=== PATIENT | male | born 1940 | race Caucasian/White ===

== ENCOUNTER → 2024-04-09 10:33 | Outpatient (REF) | payer MEDICARE, BC, SELFPAY ==
[2024-04-09 12:14] LABS: PSA, Total - Diagnostic 3.51 ng/ml (0.0-4.0)
== END ==
LOC: REG 10:33
PROVIDERS: ATTENDING PHYSICIAN Specialist; FAMILY PHYSICIAN Internal Medicine Geriatric Medicine
DX: R35.0 Frequency of micturition (principal); R35.1 Nocturia; R36.1 Hematospermia
CPT/HCPCS: 36415; 84153

== ENCOUNTER → 2024-07-10 12:19 | Outpatient (REF) | payer MEDICARE, BC, SELFPAY ==
[2024-07-10 14:01] LABS: Prealbumin (Transthyretin) 28.6 mg/dl (17.6-36.0)
== END ==
LOC: REG 12:19
PROVIDERS: ATTENDING PHYSICIAN Internal Medicine Geriatric Medicine
DX: E85.82 Wild-type transthyretin-related (ATTR) amyloidosis (principal)
CPT/HCPCS: 36415; 84134

== ENCOUNTER → 2024-08-31 08:39 | Outpatient (REF) | payer MEDICARE, BC, SELFPAY ==
[2024-08-31 09:31] LABS: Urine Albumin Negative (Neg - Trace); Urine Bilirubin Negative (Negative); Urine Character Clear (Clear); Urine Color Yellow; Urine Glucose Negative (Negative); Urine Ketone Negative (Negative); Urine Leukocyte Negative (Negative); Urine Nitrite Negative (Negative); Urine Occult Blood Negative (Negative); Urine Urobilinogen Negative (Neg - 1+)
[2024-08-31 10:10] LABS: HDL Cholesterol 50 mg/dl; LDL Cholesterol, Calculated 97 mg/dl; Total Cholesterol 159 mg/dl (50-199); Triglyceride 62 mg/dl (10-149); Very Low Density Lipoprotein 12 mg/dl (0-30)
[2024-08-31 11:50] LABS: Vitamin D, 25-OH*** 61.1 ng/mL (30-80)
== END ==
LOC: REG 08:39
PROVIDERS: ATTENDING PHYSICIAN Internal Medicine Geriatric Medicine
DX: Z00.00 Encounter for general adult medical examination without abnormal findings (principal); I10 Essential (primary) hypertension; I42.8 Other cardiomyopathies; E85.4 Organ-limited amyloidosis; E55.9 Vitamin D deficiency, unspecified; K21.9 Gastro-esophageal reflux disease without esophagitis; Z13.89 Encounter for screening for other disorder; I48.0 Paroxysmal atrial fibrillation
CPT/HCPCS: 36415; 80061; 81003; 82306; 84134

== ENCOUNTER → 2025-04-14 11:52 | Outpatient (REF) | payer MEDICARE, BC, SELFPAY | LOC: RAD 11:52 | PROVIDERS: ATTENDING PHYSICIAN Internal Medicine Geriatric Medicine | DX: I10 Essential (primary) hypertension (principal); I42.8 Other cardiomyopathies; E85.4 Organ-limited amyloidosis; E55.9 Vitamin D deficiency, unspecified; K21.9 Gastro-esophageal reflux disease without esophagitis; Z13.89 Encounter for screening for other disorder; I48.0 Paroxysmal atrial fibrillation; J04.10 Acute tracheitis without obstruction | CPT/HCPCS: 71046 ==

== ENCOUNTER → 2025-05-06 12:34 | Outpatient (REF) | payer MEDICARE, BC, SELFPAY | LOC: CLAB 12:34 | PROVIDERS: ATTENDING PHYSICIAN Nurse Practitioner Primary Care | DX: J02.9 Acute pharyngitis, unspecified (principal) | CPT/HCPCS: 87070 ==

== ENCOUNTER → 2025-08-07 07:42 | Outpatient (REF) | payer MEDICARE, BC, SELFPAY ==
[2025-08-07 08:28] LABS: Hematocrit 45.5 % (39.0-52.0); Hemoglobin 15.4 g/dL (13.0-18.0); Mean Corp Hgb Conc. 33.8 g/dL (33.0-37.0); Mean Corpuscular Volume 94.2 fL (80.0-94.0); Nucleated Red Blood Cells % 0 % (-); Platelet Count 153 10^3/uL (130-400); Red Cell Dist. Width 15.0 % (11.5-14.5)
[2025-08-07 09:24] LABS: ALT (SGPT) 23 U/L (0-50); AST (SGOT) 27 U/L (17-59); Albumin 4.1 g/dl (3.5-5.0); Alkaline Phosphatase 48 U/L (38-126); Blood Urea Nitrogen 20 mg/dl (9-20); Calcium 9.4 mg/dl (8.4-10.2); Carbon Dioxide 31 mmol/L (22-30); Chloride 107 mmol/L (98-107); Glucose 88 mg/dl (70-99); HDL Cholesterol 57 mg/dl; LDL Cholesterol, Calculated 116 mg/dl; Potassium 4.4 mmol/L (3.5-5.1); Sodium 141 mmol/L (135-145); Total Protein 6.4 g/dl (6.3-8.2); Very Low Density Lipoprotein 13 mg/dl (0-30); eGFR > 60.00
== END ==
LOC: REG 07:42
PROVIDERS: ATTENDING PHYSICIAN Internal Medicine Cardiovascular Disease; FAMILY PHYSICIAN Internal Medicine Geriatric Medicine; REFERRING PHYSICIAN Internal Medicine Cardiovascular Disease
DX: Z86.79 Personal history of other diseases of the circulatory system (principal); I10 Essential (primary) hypertension; I48.0 Paroxysmal atrial fibrillation; Z95.5 Presence of coronary angioplasty implant and graft; E85.82 Wild-type transthyretin-related (ATTR) amyloidosis
CPT/HCPCS: 36415; 80053; 80061; 85025